=== PATIENT | female | born 1970 | race Caucasian/White ===

== ENCOUNTER 2019-03-22 16:11 | Emergency (ER) | payer MEDICAID, MEDICARE ==
[~2019-03-22] VITALS: Ht 157.5 cm; Wt 10.4 kg
[2019-03-22 16:26] VITALS: BP 132/82
[2019-03-22] MEDS ORDERED: IBUP-1984 PO (17:29)
== END 2019-03-22 18:22 | disposition home or self-care (01) ==
LOC: ER 16:12
DX: M25.562 Pain in left knee (principal); R22.42 Localized swelling, mass and lump, left lower limb; Z88.8 Allergy status to other drugs, medicaments and biological substances; Z79.899 Other long term (current) drug therapy
CPT/HCPCS: 29505; 73564; 99283